=== PATIENT | male | born 1985 | race African-American/Black ===

== ENCOUNTER 2017-09-03 09:52 | Emergency (ER) | payer OTHER ==
[2017-09-03] MEDS ORDERED: IBUPROFEN 800 MG TAB PO STA (10:20)
--- NOTE | 2017-09-03 10:24 | ED ---
Upper Extremity HPI - General Chief Complaint: Extremity Injury, Upper Stated Complaint: left hand pain Time Seen by Provider: 09/03/17 10:12 Source: patient Mode of arrival: ambulatory Limitations: no limitations - History of Present Illness Initial Comments: This is a 32-year-old male with a benign history who states he had the onset of left thumb pain over last day or so. He states it hurts somewhat she can bend at its burning type pain between the metacarpal phalangeal joint in the DIP joint burning in nature H/10. He did not take anything today he denies any injury does work with a poor posture he is not recall doing anything that was out of the ordinary. He is right-hand dominant. No history of any inflammatory diseases grandfather did have a history of gout. He has a fevers chills sweats or other symptoms MD Complaint: Injury to:: left, hand - Related Data Previous Rx's Medication Instructions Recorded Famotidine [Pepcid] 20 mg PO DAILY #14 tablet 05/04/14 Acetaminophen-Codeine 300-30mg 2 tab PO Q6H PRN #30 tablet 06/13/14 [Tylenol w/codeine #3] Naproxen Sodium [Anaprox Ds] 550 mg PO Q12HR #20 tab 06/13/14 Hydrocodone/Acetaminophen [[place] 1 each PO Q6HR PRN #15 tab 06/16/14 5-325] Naproxen [Naprosyn] 500 mg PO Q12HR #20 tab 09/03/17 Allergies Allergy/AdvReac Type Severity Reaction Status Date / Time No Known Allergies Allergy Verified 09/03/17 10:09 Review of Systems ROS Statement: Those systems with pertinent positive or pertinent negative responses have been documented in the HPI. ROS Other: All systems not noted in ROS Statement are negative. Past Medical History Past Medical History: Hypertension Additional Past Medical History / Comment(s): chronic lower back pain, foot problem History of Any Multi-Drug Resistant Organisms: None Reported Past Surgical History: Cholecystectomy, Tonsillectomy Past Psychological History: No Psychological Hx Reported Smoking Status: Current some day smoker Past Alcohol Use History: Occasional Past Drug Use History: Marijuana General Exam - General Exam Comments Initial Comments: This is a well-developed well-nourished awake alert oriented times 3 male Limitations: no limitations General appearance: alert, in no apparent distress Head exam: Present: atraumatic, normocephalic, normal inspection Eye exam: Present: normal appearance, PERRL, EOMI. Absent: scleral icterus, conjunctival injection, periorbital swelling ENT exam: Present: normal exam Neck exam: Present: normal inspection. Absent: tenderness, meningismus, lymphadenopathy Extremities exam: Present: normal inspection, tenderness, normal capillary refill, other (Tenderness palpation of the IP and MCP joint of the left thumb no tenderness over the extensor tendons no snuffbox tenderness mild tenderness over the thenar eminence no increased localized temperature no step-off or crepitation. Capillary refill is less than 2 seconds.). Absent: full ROM Back exam: Present: full ROM Neurological exam: Present: alert, oriented X3, CN II-XII intact Psychiatric exam: Present: normal affect, normal mood Skin exam: Present: warm, dry, intact, normal color. Absent: rash Course Vital Signs 09/03/17 10:06 Temperature 98.4 F Pulse Rate 70 Respiratory 16 Rate Blood Pressure 190/101 O2 Sat by Pulse 98 Oximetry Procedures - Orthopedic Splinting/Casting Injury #1 Upper Extremity Injury Location: short arm Upper Extremity Immobilizer: thumb spica (Thumb spica was placed on the left upper extremity to immobilize the thumb. Patient tolerated it well good neurovascular exam afterwards) Medical Decision Making - Medical Decision Making Patient will be discharged with follow-up with his doctor he does have elevated uric acid level is unclear if this is totally the results the patient's thumb pain. He was placed in a thumb spica he will follow-up with Dr. Rose be placed on anti-inflammatories. Additionally he will be given a note for work today. - Lab Data Result diagrams: 09/03/17 10:35 Lab Results 09/03/17 09/03/17 Range/Units 10:35 10:35 WBC 9.4 (3.8-10.6) k/uL RBC 5.12 (4.30-5.90) m/uL Hgb 14.8 (13.0-17.5) gm/dL Hct 45.0 (39.0-53.0) % MCV 87.9 (80.0-100.0) fL MCH 29.0 (25.0-35.0) pg MCHC 32.9 (31.0-37.0) g/dL RDW 13.5 (11.5-15.5) % Plt Count 234 (150-450) k/uL Neutrophils % 57 % Lymphocytes % 34 % Monocytes % 4 % Eosinophils % 3 % Basophils % 1 % Neutrophils # 5.4 (1.3-7.7) k/uL Lymphocytes # 3.1 (1.0-4.8) k/uL Monocytes # 0.4 (0-1.0) k/uL Eosinophils # 0.3 (0-0.7) k/uL Basophils # 0.1 (0-0.2) k/uL Uric Acid 9.9 H (3.5-8.5) mg/dL - Radiology Data Radiology results: report reviewed (I did review the imaging and report no acute findings. Some evidence of degenerative change at the base of the thumb.) , image reviewed Disposition Clinical Impression: Gout attack, Pain of left thumb Disposition: HOME SELF-CARE Condition: Good Instructions: Gout (ED) Prescriptions: Naproxen [Naprosyn] 500 mg PO Q12HR #20 tab Is patient prescribed a controlled substance at d/c from ED?: No Referrals: Andrea Rose MD [Primary Care Provider] - 1-2 days
[2017-09-03 10:51] LABS: Basophils # (A) 0.1 k/uL (0-0.2); Basophils % (A) 1 %; Eosinophils # (A) 0.3 k/uL (0-0.7); Eosinophils % (A) 3 %; HGB 14.8 gm/dL (13.0-17.5); Lymphocytes # (A) 3.1 k/uL (1.0-4.8); Lymphocytes % (A) 34 %; MCHC 32.9 g/dL (31.0-37.0); MCV 87.9 fL (80.0-100.0); Mean Platelet Volume 7.3; Monocytes # (A) 0.4 k/uL (0-1.0); Monocytes % (A) 4 %; Neutrophils # (A) 5.4 k/uL (1.3-7.7); Neutrophils % (A) 57 %; Platelet Count 234 k/uL (150-450); RBC 5.12 m/uL (4.30-5.90); RDW 13.5 % (11.5-15.5); WBC 9.4 k/uL (3.8-10.6)
--- NOTE | 2017-09-03 11:02 | XR ---
EXAMINATION TYPE: XR hand complete LT DATE OF EXAM: 09/03/2017 CLINICAL HISTORY: First digit and metacarpal pain and swelling. TECHNIQUE: Frontal, lateral and oblique images of the left hand are obtained. COMPARISON: None. FINDINGS: There is no acute fracture/dislocation evident in the left hand. There is slight radial shaw bluxation of the first metacarpal phalangeal joint with mild degenerative changes demonstrated as zakia nt space narrowing and opposing surface sclerosis. Remainder of the joint spaces are preserved. Nonag gressive appearing sclerosis is seen of the ulnar aspect of the fourth distal phalanx. No radiopaque foreign body. Osseous mineralization is within normal limits. The overlying soft tissue appears unrem arkable. IMPRESSION: There is no acute fracture or dislocation in the left hand. Slight subluxation and mild degenerative changes of the first metacarpal phalangeal joint may be on the basis of early arthropath y.
[2017-09-03 13:00] VITALS: BP 177/88; PULSE 76; RESP 18; TEMP 98
== END 2017-09-03 13:00 | disposition home or self-care (01) ==
LOC: EC 09:52
DX: M10.9 Gout, unspecified (principal); F17.200 Nicotine dependence, unspecified, uncomplicated
CPT/HCPCS: 29125; 36415; 84550; 85025; 99283

== ENCOUNTER 2020-07-05 00:15 | Emergency (ER) | payer OTHER ==
[2020-07-05 00:21] VITALS: RESP 20
--- NOTE | 2020-07-05 01:10 | XR ---
EXAM: XR Chest, 2 Views CLINICAL HISTORY: ITS.REASON XR Reason: cough TECHNIQUE: Frontal and lateral views of the chest. COMPARISON: No relevant prior studies available. FINDINGS: Lungs: Interstitial markings are prominent of the left mid to lower lung suspicious for viral or interstitial pneumonitis. Pleural space: Unremarkable. No pneumothorax. Heart: Unremarkable. No cardiomegaly. Mediastinum: Unremarkable. Bones/joints: Unremarkable. Other findings: Large body habitus. IMPRESSION: Interstitial markings are prominent of the left mid to lower lung suspicious for viral or interstitial pneumonitis.
[2020-07-05] MEDS ORDERED: ONDANSETRON 4 MG ODT STARTER PACK 2 TAB BTL PO STA (02:46)
[2020-07-05] MEDS ORDERED: dexAMETHasone 2 MG TAB PO STA (03:34)
--- NOTE | 2020-07-05 03:34 | ED ---
General Adult HPI - General Chief complaint: Fever Stated complaint: Cough Time Seen by Provider: 07/05/20 02:07 Source: patient Mode of arrival: ambulatory Limitations: no limitations - History of Present Illness Initial comments: 34-year-old male patient presents to the emergency department today for evaluation of cough, congestion, fever. States he's been sick for the last 3 or 4 days. States he is also experiencing nausea, decreased appetite, diarrhea. States today he started to have some mild shortness of breath so thought he would come in and get checked out. He is concerned he has COVID-19. States he did take some Mucinex Tylenol. Denies any significant past medical history. Patient denies any recent rash, chest pain, abdominal pain, constipation, back pain, numbness, tingling, dizziness, weakness, hematuria, dysuria, urinary urgency, urinary frequency, headache, visual changes, or any other complaints. - Related Data Previous Rx's Medication Instructions Recorded Famotidine [Pepcid] 20 mg PO DAILY #14 tablet 05/04/14 Acetaminophen-Codeine 300-30mg 2 tab PO Q6H PRN #30 tablet 06/13/14 [Tylenol w/codeine #3] Naproxen Sodium [Anaprox Ds] 550 mg PO Q12HR #20 tab 06/13/14 Hydrocodone/Acetaminophen [[place] 1 each PO Q6HR PRN #15 tab 06/16/14 5-325] Naproxen [Naprosyn] 500 mg PO Q12HR #20 tab 09/03/17 Dexamethasone 6 mg PO DAILY #9 tablet 07/05/20 Ondansetron [Zofran ODT] 4 mg PO Q8HR PRN #10 tab 07/05/20 Allergies Allergy/AdvReac Type Severity Reaction Status Date / Time No Known Allergies Allergy Verified 07/05/20 00:21 Review of Systems ROS Statement: Those systems with pertinent positive or pertinent negative responses have been documented in the HPI. ROS Other: All systems not noted in ROS Statement are negative. Past Medical History Past Medical History: Hypertension Additional Past Medical History / Comment(s): chronic lower back pain, foot problem History of Any Multi-Drug Resistant Organisms: None Reported Past Surgical History: Cholecystectomy, Tonsillectomy Past Psychological History: No Psychological Hx Reported Smoking Status: Never smoker Past Alcohol Use History: Occasional Past Drug Use History: Marijuana General Exam Limitations: no limitations General appearance: alert, in no apparent distress, other (This is a well- developed, well-nourished adult male patient in no acute distress. Vital signs upon presentation are temperature 100.3F, pulse 88, respirations 20, blood pressure 164/101, pulse ox 97% on room air.) Eye exam: Present: normal appearance, PERRL, EOMI. Absent: scleral icterus, conjunctival injection, periorbital swelling ENT exam: Present: normal exam, normal oropharynx, mucous membranes moist Respiratory exam: Present: normal lung sounds bilaterally. Absent: respiratory distress, wheezes, rales, rhonchi, stridor Cardiovascular Exam: Present: regular rate, normal rhythm, normal heart sounds. Absent: systolic murmur, diastolic murmur, rubs, gallop, clicks GI/Abdominal exam: Present: soft, normal bowel sounds. Absent: distended, tenderness, guarding, rebound, rigid Neurological exam: Present: alert, oriented X3, CN II-XII intact Psychiatric exam: Present: normal affect, normal mood Skin exam: Present: warm, dry, intact, normal color. Absent: rash Course Vital Signs 07/05/20 00:17 Temperature 100.3 F H Pulse Rate 88 Respiratory 20 Rate Blood Pressure 164/101 O2 Sat by Pulse 97 Oximetry Medical Decision Making - Medical Decision Making 34-year-old male patient presents to the emergency department today for evaluation of upper respiratory symptoms, fever, shortness of breath. Also h aving diarrhea. Physical examination is unremarkable. Chest x-ray was obtained and did show increased initial markings in the right lower lung consistent with viral pneumonitis. He did test positive for COVID-19. I did explain to him that given his BMI he is in a high risk category for having this illness. I offered to infuse bamlanivimab. We discussed risks versus benefits. I did explain to him that he must get this medication within 10 days of symptom onset. He declined medication at this time after verbalizing understanding. He will be discharged with prescription for Zofran and dexamethasone. He is instructed to follow-up with his primary care physician for recheck in 1-2 days. Return parameters were discussed in detail. He verbalizes understanding and agrees with this plan. Case discussed with my attending Dr. Siegel. - Lab Data Lab Results 07/05/20 07/05/20 Range/Units 00:22 02:47 Coronavirus (PCR) Not Detected Detected A (Not Detectd) - Radiology Data Radiology results: report reviewed, image reviewed Two-view x-ray of the chest is obtained. Report was reviewed in its entirety. Impression by Dr. Zheng shows interstitial markings are prominent of the left mid to lower lung suspicious for viral or interstitial pneumonitis. Disposition Clinical Impression: COVID-19, Pneumonia due to COVID-19 virus Disposition: HOME SELF-CARE Condition: Good Instructions (If sedation given, give patient instructions): Coronavirus Disease 2019 (COVID-19), Viral Pneumonia (ED) Additional Instructions: Take medications as directed. Increase fluids. Follow-up with the primary care physician for recheck in 1-2 days. Return to the emergency department for any new, worsening, or concerning symptoms. Prescriptions: Dexamethasone 6 mg PO DAILY #9 tablet Ondansetron [Zofran ODT] 4 mg PO Q8HR PRN #10 tab PRN Reason: Nausea Is patient prescribed a controlled substance at d/c from ED?: No Referrals: Richard Virgen MD [Primary Care Provider] - 1-2 days Time of Disposition: 03:34
[2020-07-05 04:02] VITALS: BP 188/94; PULSE 94; TEMP 98
== END 2020-07-05 03:54 | disposition home or self-care (01) ==
LOC: EC 00:15
DX: U07.1 COVID-19 (principal); J12.82 Pneumonia due to coronavirus disease 2019
CPT/HCPCS: 87635; 71046; 99283; J8540; S0119